=== PATIENT | male | born 1960 | race Caucasian/White ===

== ENCOUNTER 2020-12-28 17:14 | Emergency (ER) | payer BC, SELFPAY ==
--- NOTE | ~2020-12-28 | CT_ITS ---
EXAMINATION: CT abdomen pelvis wo con DATE: 12/28/2020 19:21 INDICATION: Left flank pain TECHNIQUE: Computed tomography (CT) of the abdomen and pelvis was performed without intravenous contr ast. Automated exposure control and iterative reconstruction technique were employed. Exam dose: 405 .11 mGy-cm total exam DLP. COMPARISON: 10/31/[address] abdomen pelvis FINDINGS: Chronic elevated left diaphragm with mild compressive atelectasis at the left lung base. Normal heart size. No pericardial or pleural effusion. No hepatic, splenic, pancreatic, adrenal or right renal space-occupying mass lesion is evident on thi s limited noncontrast examination. Approximately 3 cm probable left renal cyst. There is a 3.8 mm upper pole nonobstructing left renal calculus. There is a pinpoint nonobstructing lower pole left renal calculus. 3 mm lower pole nonobstructing right renal calculus. 3.5 x 5.4 mm distal left ureteral calculus, situated near the left ureter vesicle junction, with mild left hydroureteronephrosis. Normal caliber of the abdominal aorta. No intraperitoneal or retroperitoneal or pelvic mass lesion or adenopathy or ascites. Normal appendix. Diverticulosis of the colon; no CT evidence of diverticulitis. No bowel obstruction, bowel wall thick ening, pneumatosis or intraperitoneal free air. Small fat-containing right inguinal hernia. Small fat-containing umbilical hernia. Prostate enlargement and calcifications. Mild diffuse thickening of the urinary bladder wall. Included skeletal structures are unremarkable. IMPRESSION: 3.5 x 5.4 mm distal left ureteral calculus with mild left hydroureteronephrosis Mild bilateral nonobstructive nephrolithiasis 3. Severe probable left renal cyst Diverticulosis of the colon Prostate enlargement and calcifications Reviewed, dictated and finalized at [facility]. Reviewed, dictated and finalized at [facility]. IMPRESSION: 3.5 x 5.4 mm distal left ureteral calculus with mild left hydroure teronephrosis Mild bilateral nonobstructive nephrolithiasis 3. Severe probable left renal cyst Diverticulosis of the colon Prostate enlargement and calcifications
[2020-12-28 17:28] VITALS: BP 145/85; PULSE 89; RESP 16; TEMP 32.2; O2SAT 97
[2020-12-28 17:52] LABS: Basophils Percent Auto 0.2 % (0.2-1.2); Eosinophils Percent Auto 0.3 % (0-4.4); Hemoglobin 15.1 g/dL (14.0-18.0); Immature Granulocyte Absolute 0.03 K/mm3 (0.00-0.031); Immature Granulocyte Percent A 0.3 % (0-0.5); Lymphocytes Absolute Auto 1.88 K/mm3 (0.9-3.2); Lymphocytes Percent Auto 19.4 % (18.3-44.2); Mean Corpuscular HGB Conc 34.3 g/dl (32-36); Mean Corpuscular Hemoglobin 30.9 pg (26-34); Monocytes Absolute Auto 0.9 K/mm3 (0.1-0.6); Neutrophils Absolute Auto 6.9 K/mm3 (1.3-6.7); Neutrophils Percent Auto 70.8 % (45.5-73.1); Platelet Count Result 232 k/mm3 (150-375); Red Blood Count 4.89 M/mm3 (4.6-6.20); Red Cell Distribution Width 11.9 % (11.5-14.5); White Blood Count 9.7 K/mm3 (4.5-10.0)
[2020-12-28 18:00] LABS: Add Urine Microscopic? YES; Appearance Urine Clear (Clear); Bilirubin Urine Negative (Negative); Blood Urine 3+ (Negative); Color Urine Straw (Yellow); Glucose Urine UA Negative (Negative); Ketones Urine Trace mg/dL (Negative); Leukocyte Esterase Ur Negative LEU/UL (Negative); Mucus Urine Rare /lpf; Nitrate Urine Negative (Negative); Protein Urine Negative (Negative); Specific Grav Ur 1.006 (1.001-1.035); Squamous Epithelial Cell Urine Rare /hpf (Few); Urobilinogen Urine Negative mg/dL (<2.0); WBC Urine 0-3 /hpf
[2020-12-28 18:06] LABS: Anion Gap 8 mmol/L (8-16); Blood Urea Nitrogen 13 mg/dL (9-20); Calcium 9.3 mg/dL (8.4-10.2); Carbon Dioxide 28 mmol/L (22-30); Chloride 103 mmol/L (98-107); Estimated CRCL calculation 82 ml/min; Estimated Glomerular Filt Rate > 60; Glucose 126 mg/dL (75-110); Potassium 3.7 mmol/L (3.4-5.0); Sodium 139 mmol/L (137-145)
[2020-12-28 20:19] VITALS: BP 142/81; PULSE 90; RESP 16; O2SAT 100
--- NOTE | 2020-12-28 20:25 | ED.ABDPAIN ---
HPI - Abdominal Pain General Chief Complaint: Abdominal Pain Stated Complaint: left lower quadrant pain Time Seen by Provider: 12/28/20 18:34 Source: patient Mode of arrival: ambulatory Limitations: no limitations History of Present Illness HPI narrative: 60-year-old with a history of dyslipidemia here with complaints of left flank pain since last night. Patient states that he had severe pain about 2 AM this morning pain started in the flank area radiating into his lower abdomen however pain eased up by midmorning and started having pain again since that afternoon. He states that he had was nauseated and threw up once. He also states that his urine was straw-colored yesterday however today it is clear. He denies any dysuria. No history of fever or chills. MD elicited complaint: abdominal pain and flank pain Pertinent past history: none Pain Consistency: intermittent Quality: stabbing Migration to: LLQ Exacerbating factors: nothing Relieving factors: nothing Related Data Allergies Allergy/AdvReac Type Severity Reaction Status Date / Time No Known Allergies Allergy Unverified 10/09/16 05:43 Review of Systems Review of Systems: All systems reviewed & are unremarkable except as noted in HPI and below Constitutional: Constitutional: Reports no additional constitutional complaints Eyes: Eyes: Reports no additional eye complaints ENT: Reports system reviewed and no additional complaints, except as documented Cardiovascular: Cardiovascular: Reports no additional cardiovascular complaints Respiratory: Respiratory: Reports no additional respiratory complaints Gastrointestinal: Gastrointestinal: Reports as per HPI Genitourinary: Genitourinary: Reports as per HPI Musculoskeletal: Musculoskeletal: Reports no additional musculoskeletal complaints Integumentary/Breasts: Skin/Breast: Reports system reviewed and no additional complaints, except as docu Neurologic: Reports system reviewed and no additional complaints, except as documented PMFSH Past Medical History Medical History History of inguinal hernia History of pneumonia Hx of gout Hx of hearing loss Family History Family History Father Heart disease Social History Social History Smoking status: Never smoker Alcohol intake: current Exam Narrative: Exam Narrative: GENERAL: Well-appearing, well-nourished, and in no acute distress. HEAD: Normocephalic, atraumatic. EYES: PERRLA and EOMI.. NECK: Supple. CHEST: Clear to auscultation. No respiratory distress. HEART: Regular rate and rhythm. No murmur heard. Normal peripheral pulses. ABDOMEN: Soft, nontender, nondistended, normal active bowel sounds. EXTREMITIES: Normal range of motion. No edema. SKIN: Warm, dry, no rash. NEURO: No focal deficits. Alert and oriented x3. PSYCH: Normal mood and affect. Course Course Emergency Course: Patient still remains asymptomatic at this time. I discussed labs, CT findings with the patient and the family as well as with Dr. White patient can be discharged home with pain medication and Flomax and advised patient to drink plenty of fluids strain the urine and if he does not pass the stone in a week's time recommended him to follow-up with the urologist. Vital Signs Vital signs: Vital Signs Temperature 32.2 C L 12/28/20 17:28 Pulse Rate 89 12/28/20 17:28 Respiratory Rate 16 12/28/20 17:28 Blood Pressure 145/85 H 12/28/20 17:28 Pulse Oximetry 97 12/28/20 17:28 Temperature 32.2 C L 12/28/20 17:28 Pulse Rate 90 12/28/20 20:19 Respiratory Rate 16 12/28/20 20:19 Blood Pressure 142/81 H 12/28/20 20:19 Pulse Oximetry 100 12/28/20 20:19 MDM - Abdominal Pain MDM Narrative Medical decision making narrative: With a sudden onset of left-sided flank pain radiating to his left groin
== END 2020-12-28 20:44 | disposition home or self-care (01) ==
PROVIDERS: Emergency Medicine; Emergency Provider Family Medicine; PCP Internal Medicine
DX: N13.2 Hydronephrosis with renal and ureteral calculous obstruction (principal); E78.5 Hyperlipidemia, unspecified; M10.9 Gout, unspecified; N40.0 Benign prostatic hyperplasia without lower urinary tract symptoms; K57.90 Diverticulosis of intestine, part unspecified, without perforation or abscess without bleeding
CPT/HCPCS: 36415; 74176; 80048; 81001; 85025; 99284

== ENCOUNTER 2021-01-03 15:29 | Emergency (ER) | payer BC, SELFPAY ==
--- NOTE | 2021-01-03 16:54 | PC.NURSE ---
Call to waiting room, no answer.
--- NOTE | 2021-01-03 18:07 | PC.NURSE ---
Pt's name called to triage. No answer. Assume patient left without being seen.
== END 2021-01-03 18:07 | disposition left against medical advice (07) ==
LOC: ANHED 18:11
PROVIDERS: PCP Internal Medicine
DX: Z53.21 Procedure and treatment not carried out due to patient leaving prior to being seen by health care provider (principal)
CPT/HCPCS: 99199

== ENCOUNTER 2021-01-04 17:37 | Emergency (ER) | payer BC, SELFPAY ==
--- NOTE | ~2021-01-04 | XR_ITS ---
EXAMINATION: XR chest 2V EXAM DATE: 01/04/2021 18:19 INDICATION: Weakness, lethargy, symptoms one week. Distal left ureteral stone on last week's CT scan. TECHNIQUE: Frontal and lateral projections of the chest obtained and reviewed. Correlation is made to chest CT 12/28/2020. FINDINGS: Severely elevated left hemidiaphragm may indicate hemidiaphragm paralysis. There is adjace nt left basilar atelectasis. The lungs are otherwise clear. There are no pleural effusions. The car diomediastinal silhouette is within normal limits. There is no pneumothorax suspected. The bones an d soft tissues are unremarkable. IMPRESSION: 1. No acute cardiopulmonary findings. 2. Chronic left hemidiaphragm elevation, could indicate paralysis. Reviewed, dictated and finalized at [facility].
[2021-01-04 17:56] VITALS: BP 116/77; PULSE 86; RESP 17; TEMP 37.2; O2SAT 96
--- NOTE | 2021-01-04 18:00 | ECG_ITS ---
Measurements Intervals Steele Rate: 82 P: 3 MS: 205 QRS: -40 QRSD: 97 T: 53 QT: 356 QTc: 418 Interpretive Statements SINUS RHYTHM LEFT AXIS DEVIATION BORDERLINE AV CONDUCTION DELAY BORDERLINE R WAVE PROGRESSION, ANTERIOR LEADS BASELINE WANDER- III, V3 BORDERLINE ECG Electronically Signed On 01-04-2021 19:44:12 CDT by Lauri Horton D.O.
[2021-01-04 18:07] LABS: Glucose Point of Care 139 (65-105)
[2021-01-04 18:18] LABS: Basophils Percent Auto 0.3 % (0.2-1.2); Hematocrit 47.9 % (42.0-52.0); Hemoglobin 16.8 g/dL (14.0-18.0); Immature Granulocyte Absolute 0.01 K/mm3 (0.00-0.031); Immature Granulocyte Percent A 0.3 % (0-0.5); Lymphocytes Absolute Auto 1.89 K/mm3 (0.9-3.2); Lymphocytes Percent Auto 49.5 % (18.3-44.2); Mean Corpuscular HGB Conc 35.1 g/dl (32-36); Mean Corpuscular Hemoglobin 31.1 pg (26-34); Mean Corpuscular Volume 88.7 fl (80-100); Mean Platelet Volume 9.2 fl (7.4-10.4); Monocytes Absolute Auto 0.2 K/mm3 (0.1-0.6); Monocytes Percent Auto 5.5 % (2.6-8.5); Neutrophils Absolute Auto 1.7 K/mm3 (1.3-6.7); Neutrophils Percent Auto 44.4 % (45.5-73.1); Platelet Count Result 188 k/mm3 (150-375); Red Cell Distribution Width 12.1 % (11.5-14.5); White Blood Count 3.8 K/mm3 (4.5-10.0)
[2021-01-04 18:31] LABS: Alanine Aminotransferase 33 U/L (4-50); Albumin Level 4.2 g/dL (3.5-5.1); Alkaline Phosphatase 57 U/L (38-126); Anion Gap 9 mmol/L (8-16); Aspartate Amino Transferase 51 U/L (17-59); Bilirubin,Total 0.4 mg/dL (0.2-1.3); Blood Urea Nitrogen 16 mg/dL (9-20); Calcium 8.8 mg/dL (8.4-10.2); Carbon Dioxide 25 mmol/L (22-30); Chloride 103 mmol/L (98-107); Estimated CRCL calculation 81 ml/min; Estimated Glomerular Filt Rate > 60; Glucose 136 mg/dL (75-110); Potassium 4.1 mmol/L (3.4-5.0); Sodium 137 mmol/L (137-145)
== END 2021-01-04 21:00 | disposition left against medical advice (07) ==
LOC: ANHED 20:39
PROVIDERS: Emergency Provider Emergency Medicine; PCP Internal Medicine
DX: R53.1 Weakness (principal)
CPT/HCPCS: 36415; 71046; 80053; 82948; 85025; 93005; 99199

== ENCOUNTER 2021-01-15 12:42 | Emergency (ER) | payer BC, SELFPAY ==
--- NOTE | ~2021-01-15 | XR_ITS ---
XR chest 1V portable DATE: 01/15/2021 13:10 INDICATION: Covid infection TECHNIQUE: Portable AP chest on 01/15/2021 at 1310 hours COMPARISON: PA and lateral chest 08/13/2006 PA and lateral chest FINDINGS: Chronic elevation of left diaphragm since 08/13/2006. Heart size is within normal limits. No hilar or mediastinal enlargement. There are patchy bilateral infiltrates involving the right mid and both lower lung zones primarily. IMPRESSION: Interval bilateral pulmonary infiltrates since 01/04/2021 Reviewed, dictated and finalized at [facility].
[2021-01-15 12:57] VITALS: BP 114/80; PULSE 72; RESP 18; TEMP 36.7; O2SAT 95
[2021-01-15] MEDS: SODIUM CHLORIDE 0.9% IV 1,000 ML 150 ML IV CONT (13:16)
[2021-01-15 13:50] LABS: Basophils Percent Auto 0.1 % (0.2-1.2); Eosinophils Percent Auto 0.5 % (0-4.4); Hematocrit 43.4 % (42.0-52.0); Hemoglobin 15.1 g/dL (14.0-18.0); Immature Granulocyte Absolute 0.05 K/mm3 (0.00-0.031); Immature Granulocyte Percent A 0.6 % (0-0.5); Lymphocytes Absolute Auto 1.04 K/mm3 (0.9-3.2); Lymphocytes Percent Auto 13.1 % (18.3-44.2); Mean Corpuscular HGB Conc 34.8 g/dl (32-36); Mean Corpuscular Hemoglobin 30.4 pg (26-34); Mean Corpuscular Volume 87.5 fl (80-100); Mean Platelet Volume 9.4 fl (7.4-10.4); Monocytes Absolute Auto 0.7 K/mm3 (0.1-0.6); Monocytes Percent Auto 9.2 % (2.6-8.5); Neutrophils Absolute Auto 6.1 K/mm3 (1.3-6.7); Neutrophils Percent Auto 76.5 % (45.5-73.1); Platelet Count Result 343 k/mm3 (150-375); Red Blood Count 4.96 M/mm3 (4.6-6.20); Red Cell Distribution Width 11.9 % (11.5-14.5); White Blood Count 7.9 K/mm3 (4.5-10.0)
[2021-01-15 14:02] LABS: Alanine Aminotransferase 32 U/L (4-50); Albumin Level 3.5 g/dL (3.5-5.1); Alkaline Phosphatase 60 U/L (38-126); Anion Gap 7 mmol/L (8-16); Aspartate Amino Transferase 26 U/L (17-59); Bilirubin,Total 1.1 mg/dL (0.2-1.3); Blood Urea Nitrogen 17 mg/dL (9-20); Calcium 8.3 mg/dL (8.4-10.2); Carbon Dioxide 26 mmol/L (22-30); Chloride 103 mmol/L (98-107); Estimated CRCL calculation 111 ml/min; Estimated Glomerular Filt Rate > 60; Glucose 200 mg/dL (75-110); Lactic Acid Reflex 1.5 mmol/L (0.7-2.1); Potassium 3.9 mmol/L (3.4-5.0); Sodium 136 mmol/L (137-145)
[2021-01-15 15:00] VITALS: BP 110/72; PULSE 72; RESP 17; O2SAT 100
--- NOTE | 2021-01-15 16:33 | ED.GENADULT ---
HPI - General Adult General Chief complaint: Weakness Stated complaint: increased weakness - COVID + Time Seen by Provider: 01/15/21 12:54 Source: patient Mode of arrival: EMS Limitations: no limitations History of Present Illness HPI narrative: 60-year-old with a history of diabetes, hypertension recently diagnosed with Covid on January 05 here with complaints of marked weakness associated with severe diarrhea. Patient denies any cough or shortness of breath. He denies any blood in the stool. Denies any abdominal pain or cramping. Related Data Allergies Allergy/AdvReac Type Severity Reaction Status Date / Time No Known Allergies Allergy Verified 01/14/21 14:50 PMFSH Past Medical History Medical History History of inguinal hernia History of pneumonia Hx of gout Hx of hearing loss Family History Family History Father Heart disease Social History Social History Smoking status: Never smoker Alcohol intake: current Gender identity (if verbalized by the patient): Male Exam Narrative: Exam Narrative: GENERAL: Well-appearing, well-nourished, and in no acute distress. HEAD: Normocephalic, atraumatic. EYES: PERRLA and EOMI.. NECK: Supple. CHEST: Clear to auscultation. No respiratory distress. HEART: Regular rate and rhythm. No murmur heard. Normal peripheral pulses. ABDOMEN: Soft, nontender, nondistended, normal active bowel sounds. EXTREMITIES: Normal range of motion. No edema. SKIN: Warm, dry, no rash. NEURO: No focal deficits. Alert and oriented x3. PSYCH: Normal mood and affect. Course Course Emergency Course: Inform patient about his lab work and chest x-ray findings. This time patient is not dehydrated and he is maintained his O2 saturations about 93 to 94% on room air. Advised him to continue his home medication. Return to the ER if he is unable to walk even for short distance. Vital Signs Vital signs: Vital Signs Temperature 36.7 C 01/15/21 12:57 Pulse Rate 72 01/15/21 12:57 Respiratory Rate 18 01/15/21 12:57 Blood Pressure 114/80 01/15/21 12:57 Pulse Oximetry 95 01/15/21 12:57 Temperature 36.7 C 01/15/21 12:57 Pulse Rate 72 01/15/21 15:00 Respiratory Rate 17 01/15/21 15:00 Blood Pressure 110/72 01/15/21 15:00 Pulse Oximetry 100 01/15/21 15:00 Medical Decision Making Vital Signs Vital Signs: Vital Signs Temperature 36.7 C 01/15/21 12:57 Pulse Rate 72 01/15/21 12:57 Respiratory Rate 18 01/15/21 12:57 Blood Pressure 114/80 01/15/21 12:57 Pulse Oximetry 95 01/15/21 12:57 Temperature 36.7 C 01/15/21 12:57 Pulse Rate 72 01/15/21 15:00 Respiratory Rate 17 01/15/21 15:00 Blood Pressure 110/72 01/15/21 15:00 Pulse Oximetry 100 01/15/21 15:00 Lab Data Result diagrams: 01/15/21 13:45 01/15/21 13:45 Labs: Lab Results 01/15/21 01/15/21 01/15/21 Range/Units 13:45 13:45 13:45 WBC 7.9 (4.5-10.0) K/mm3 RBC 4.96 (4.6-6.20) M/mm3 Hgb 15.1 (14.0-18.0) g/dL Hct 43.4 (42.0-52.0) % MCV 87.5 (80-100) fl MCH 30.4 (26-34) pg MCHC 34.8 (32-36) g/dl RDW 11.9 (11.5-14.5) % Plt Count 343 D (150-375) k/mm3 MPV 9.4 (7.4-10.4) fl Immature Gran % (Auto) 0.6 H (0-0.5) % Neut % (Auto) 76.5 H (45.5-73.1) % Lymph % (Auto) 13.1 L (18.3-44.2) % [place] % (Auto) 9.2 H (2.6-8.5) % Eos % (Auto) 0.5 (0-4.4) % Baso % (Auto) 0.1 L (0.2-1.2) % Lymph # (Auto) 1.04 (0.9-3.2) K/mm3 [place] # (Auto) 0.7 H (0.1-0.6) K/mm3 Eos # (Auto) 0.0 (0-0.3) K/mm3 Baso # (Auto) 0.0 (0.0-0.1) K/mm3 Abs Immat Gran (auto) 0.05 H (0.00-0.031) K/mm3 Absolute Neuts (auto) 6.1 (1.3-6.7) K/mm3 Absolute Nucleated RBC 0.0 (0.0-0.012) K/mm3 Nucleated RBC % 0.0 (0.0-0.2) %
== END 2021-01-15 16:54 | disposition home or self-care (01) ==
PROVIDERS: Emergency Provider Family Medicine; PCP Internal Medicine
DX: U07.1 COVID-19 (principal); J12.82 Pneumonia due to coronavirus disease 2019; I10 Essential (primary) hypertension; E11.9 Type 2 diabetes mellitus without complications; M10.9 Gout, unspecified
CPT/HCPCS: 36415; 71045; 80053; 83605; 85025; 99283; J7030

== ENCOUNTER → 2021-02-14 10:05 | Outpatient (CLI) | payer BC, SELFPAY ==
--- NOTE | ~2021-02-14 | XR_ITS ---
EXAMINATION: XR shoulder RT min 2V EXAM DATE: 02/14/2021 10:25 INDICATION: M79.601 - Pain in right arm. Pain on top of rt shoulder down RT humerus. Burning pain of anterior RT elbow. Rt forearm numbness, Rt 1st mc numbness. Pain started after doing stretches. No p rior surg or fx to RT shoulder or RT elbow. TECHNIQUE: The following right shoulder projections obtained: frontal projection with internal rotati on, frontal projection with external rotation, Grashey, and axillary (4+ views). There is no prior s tudy for comparison. FINDINGS: No evidence of right shoulder rotator cuff calcific tendinosis. There is mild right shou lder primary osteoarthritis. There are no acute fractures or dislocations identified. There is no kulkarni bcutaneous gas. The soft tissue is unremarkable. There are no radiopaque foreign bodies. IMPRESSION: Mild right shoulder osteoarthritis. Reviewed, dictated and finalized at [facility].
--- NOTE | ~2021-02-14 | XR_ITS ---
EXAMINATION: XR elbow RT 2V EXAM DATE: 02/14/2021 10:25 INDICATION: M79.601 - Pain in right arm. Pain on top of rt shoulder down RT humerus. Burning pain of anterior RT elbow. Rt forearm numbness, Rt 1st mc numbness. Pain started after doing stretches. No p rior surg or fx to RT shoulder or RT elbow. TECHNIQUE: Frontal and lateral projections of the right elbow. There is no prior study for comparis on. FINDINGS: No evidence of right elbow joint effusion. There are no acute fractures or dislocations id entified. There is no subcutaneous gas. The soft tissue is unremarkable. There are no radiopaque foreign bodies. IMPRESSION: 1. Unremarkable XR elbow RT 2V exam. Reviewed, dictated and finalized at [facility].
== END ==
PROVIDERS: Visit Provider Internal Medicine
DX: M79.601 Pain in right arm (principal); M19.012 Primary osteoarthritis, left shoulder; M19.011 Primary osteoarthritis, right shoulder
CPT/HCPCS: 73030; 73070

== ENCOUNTER → 2021-02-15 10:28 | Outpatient (CLI) | payer BC, SELFPAY ==
--- NOTE | ~2021-02-15 | XR_ITS ---
EXAMINATION:XR cervical spine 4-5V DATE: 02/15/2021 10:53 INDICATION: Cervical radiculopathy TECHNIQUE: AP, lateral, lateral swimmers and odontoid views of the cervical spine are provided. COMPARISON: None FINDINGS: There are 2 mm of retrolisthesis of C3 on C4. The odontoid is intact. No fracture is identi fied. The vertebral body heights are normal. There is mild loss of intervertebral disc space height a t C3-4. Mild facet and uncovertebral joint osteoarthritis are also noted at C3-4. Prevertebral soft t issues are normal. IMPRESSION: 1. Mild cervical spondylosis at C3-4. Reviewed, dictated and finalized at [facility].
== END ==
PROVIDERS: PCP Internal Medicine; Visit Provider Physician Assistant
DX: M54.12 Radiculopathy, cervical region (principal); M47.812 Spondylosis without myelopathy or radiculopathy, cervical region
CPT/HCPCS: 72050

== ENCOUNTER 2021-02-23 13:15 | Outpatient (CLI) | payer BC, SELFPAY ==
--- NOTE | 2021-02-23 13:22 | ECHO_ITS ---
Patient Info Name: Corby Washington Age: 60 years : 1960 Gender: Male Ht: 69 in Wt: 200 lbs BSA: 2.12 m2 HR: 78 bpm BP: 125 / 74 mmHg Technical Quality: Fair Exam Date: 02/23/2021 2:10 PM Exam Location: [facility] Patient Status: Outpatient Admit Date: 02/23/2021 Staff Ordering Physician: Conor Bryant DO Hostler Helper: Ny Manley RDCS Attending Provider: Conor Bryant DO Referring Physician: Manny WAHL; Exam Type: CA echo doppler color flow Study Info Indications - CHEST PAIN Complete two-dimensional, color flow and Doppler transthoracic echocardiogram is performed. Summary 1. Complete two-dimensional, color flow and Doppler transthoracic echocardiogram is performed. 2. Left ventricular chamber dimension is normal. 3. Left ventricular systolic function is normal, estimated at 65-70%. 4. There is mildly increased left ventricular wall thickness. 5. The left ventricular diastolic function is grade I diastolic dysfunction. 6. E/e' 10 is mildly elevated. 7. Left atrial chamber dimension is mildly enlarged. 8. No pulmonary hypertension, estimated pulmonary arterial systolic pressure is 22 mmHg. Left Ventricle E/e' 10 is mildly elevated. Left ventricular chamber dimension is normal. Left ventricular systolic function is normal, estimated at 65-70%. There is mildly increased left ventricular wall thickness. The left ventricular diastolic function is grade I diastolic dysfunction. Right Ventricle Right ventricular chamber dimension is normal. Right ventricular systolic function is normal. Left Atria Left atrial chamber dimension is mildly enlarged. Right Atria Right atrial chamber dimension is normal. Aortic Valve The aortic valve is trileaflet. There is no aortic valve stenosis. There is no aortic valve regurgitation. Pulmonic Valve There is no pulmonic regurgitation. Mitral Valve There is no mitral valve stenosis. There is no mitral valve regurgitation. Tricuspid Valve There is no tricuspid valve regurgitation. No pulmonary hypertension, estimated pulmonary arterial systolic pressure is 22 mmHg. Pericardium/Pleural There is no pericardial effusion. Inferior Vena Cava Normal inferior vena cava with >50% collapse upon inspiration consistent with normal right atrial pressure, 5 mmHg. Aorta The aortic root size at the sinus of Valsalva is normal. Left Ventricular Outflow Tract Name Value Normal LVOT 2D LVOT Diameter 2.1 cm LVOT Doppler LVOT Peak Gradient 4 mmHg LVOT Mean Gradient 2 mmHg LVOT VTI 19 cm LVOT VTI/AV VTI Ratio 0.8 LVOT Stroke Volume 62 ml LVOT CO 14.6 l/min LVOT CI 6.9 l/min/m2 Pulmonic Valve Name Value Normal PV Doppl
== END 2021-02-23 13:16 | disposition home or self-care (01) ==
PROVIDERS: PCP Internal Medicine; Visit Provider Internal Medicine
DX: R07.89 Other chest pain (principal)
CPT/HCPCS: 93306